=== PATIENT | female | born 1975 | race Caucasian/White ===

== ENCOUNTER 2021-09-16 18:45 | Emergency (ER) | payer SELFPAY ==
[2021-09-16 20:08] LABS: Urine Blood 3+ (Negative); Urine Glucose Negative (Negative); Urine Protein Negative (Negative)
[2021-09-16] MEDS ORDERED: NA CHLORIDE 0.9% 1,000 ML ONE (20:33)
[2021-09-16 20:49] LABS: Absolute Lymphocytes (CBC) 2.8 K/uL (0.7-4.9); Basophils % 1.4 % (0-1.3); Lymphocytes % 33.4 % (15.3-44.8); MPV 10.1 fL (7.6-11.3); RBC Red Blood Cell Count 4.02 M/uL (3.86-4.86)
[2021-09-16 21:01] LABS: BUN Blood Urea Nitrogen 10 mg/dL (7-18); Bicarbonate 21 mmol/L (21-32); Glucose Level 102 mg/dL (74-106); Potassium 3.7 mmol/L (3.5-5.1); Sodium Level 146 mmol/L (136-145); Troponin (Emerg Dept Use Only) < 0.02 ng/mL (0.0-0.045)
--- NOTE | 2021-09-16 21:19 | RAD REPORT ---
EXAM DESCRIPTION: US - Pelvis Complete - 09/16/2021 9:10 pm CLINICAL HISTORY: ABD PAIN Pelvic pain. COMPARISON: No comparisons FINDINGS: The uterus is normal in size, shape and echotexture. The uterus measures 7.6 x 5.4 x 4.7 c m. The endometrial stripe measures 4 mm, normal. The left ovary is normal with normal blood flow and measures 2.9 x 2.6 x 1.6 cm. The right ovary is obscured by bowel gas. No adnexal masses. No significant pelvic ascites. IMPRESSION: Nonvisualization the right ovary, otherwise negative study.
--- NOTE | 2021-09-16 21:52 | EDPHYS ---
Physician Documentation [facility] Name: Meredith Swain Age: 46 yrs Sex: Female : 1975 Arrival Date: 09/16/2021 Time: 18:46 Bed 18 Private MD: [place] Physician Kalyan Rivera HPI: 09/16 20:53 This 46 yrs old Female presents to ER via Ambulatory with complaints of iban Vaginal Bleeding, General Weakness, Doesn't Feel Right. 20:53 The patient presents with vaginal bleeding that is moderate. Onset: The iban symptoms/episode began/occurred 1 day(s) ago. Modifying factors: The symptoms are alleviated by nothing, the symptoms are aggravated by nothing. Associated signs and symptoms: The patient has no apparent associated signs or symptoms. Severity of symptoms: At their worst the symptoms were moderate. The patient is sexually active, reportedly has a single partner. The patient has not experienced similar symptoms in the past. 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 - Social history:: Smoking status: Patient reports the use of cigarette tobacco products. - Family history:: not pertinent. ROS: 20:53 Constitutional: Negative for fever, chills, and weight loss, Eyes: Negative for injury, iban pain, redness, and discharge, ENT: Negative for injury, pain, and discharge, Neck: Negative for injury, pain, and swelling, Cardiovascular: Negative for chest pain, palpitations, and edema, Respiratory: Negative for shortness of breath, cough, wheezing, and pleuritic chest pain, Abdomen/GI: Negative for abdominal pain, nausea, vomiting, diarrhea, and constipation, Back: Negative for injury and pain, : Negative for injury, bleeding, discharge, and swelling, MS/Extremity: Negative for injury and deformity, Skin: Negative for injury, rash, and discoloration, Neuro: Negative for headache, weakness, numbness, tingling, and seizure, Psych: Negative for depression, anxiety, suicide ideation, homicidal ideation, and hallucinations, Allergy/Immunology: Negative for hives, rash, and allergies, Endocrine: Negative for neck swelling, polydipsia, polyuria, polyphagia, and marked weight changes, Hematologic/Lymphatic: Negative for swollen nodes, abnormal bleeding, and unusual bruising. Exam: 20:53 Constitutional: This is a well developed, well nourished patient who is awake, alert, iban and in no acute distress. Head/Face: Normocephalic, atraumatic. Eyes: Pupils equal round and reactive to light, extra-ocular motions intact. Lids and lashes normal. Conjunctiva and sclera are non-icteric and not injected. Cornea within normal limits. Periorbital areas with no swelling, redness, or edema. ENT: Nares patent. No nasal discharge, no septal abnormalities noted. Tympanic membranes are normal and external auditory canals are clear. Oropharynx with no redness, swelling, or masses, exudates, or evidence of obstruction, uvula midline. Mucous membranes moist. Neck: Trachea midline, no thyromegaly or masses palpated, and no cervical lymphadenopathy. Supple, full range of motion without nuchal rigidity, or vertebral point tenderness. No Meningismus. Chest/axilla: Normal chest wall appearance and motion. Nontender with no deformity. No lesions are appreciated. Cardiovascular: Regular rate and rhythm with a normal S1 and S2. No gallops, murmurs, or rubs. Normal PMI, no JVD. No pulse deficits. Respiratory: Lungs have equal breath sounds bilaterally, clear to auscultation and percussion. No rales, rhonchi or wheezes noted. No increased work of breathing, no retractions or nasal flaring. Abdomen/GI: Soft, non-tender, with normal bowel sounds. No distension or tympany. No guarding or rebound. No evidence of tenderness throughout. Back: No spinal tenderness. No costovertebral tenderness. Full range of motion. Skin: Warm, dry with normal turgor. Normal color with no rashes, no lesions, and no evidence of cellulitis. MS/ Extremity: Pulses equal, no cyanosis. Neurovascular intact. Full, normal range of motion. Neuro: Awake and alert, GCS 15, oriented to person, place, time, and situation. Cranial nerves II-XII grossly intact. Motor strength 5/5 in all extremities. Sensory grossly intact. Cerebellar exam normal. Normal gait. Psych: Awake, alert, with orientation to person, place and time. Behavior, mood, and affect are within normal limits. 20:53 ECG was reviewed by the Attending Physician. Vital Signs: 18:53 BP 126 / 79; Pulse 89; Resp 17; Temp 97.7; Pulse Ox 99% ; Weight 59.87 kg; Height 5 ft. jh6 0 in. (152.40 cm); Pain 6/10; 20:00 BP 115 / 61; Pulse 90; Resp 19; Pulse Ox 100% on R/A; sm5 21:00 BP 108 / 59; Pulse 71; Resp 18; Pulse Ox 100% ; sm5 18:53 Body Mass Index 25.78 (59.87 kg, 152.40 cm) jh6 MDM: 20:02 Patient medically screened. [facility] 20:59 Differential diagnosis: dysfunctional uterine bleeding, dysmenorrhea, menometrorrhagia, iban menorrhea, nonspecific abdominal pain, urinary tract infection. Data reviewed: vital signs, nurses notes, lab test result(s), EKG, radiologic studies, ultrasound. Data interpreted: cardiac monitor: rate is 89 beats/min, rhythm is regular, Pulse oximetry: on room air is 99 %. Test interpretation: by ED physician or midlevel provider: ECG. Counseling: I had a detailed discussion with the patient and/or guardian regarding: the historical points, exam findings, and any diagnostic results supporting the discharge/admit diagnosis, lab results, radiology results, the need for outpatient follow up, for definitive care, a family practitioner, an OB/Gyne specialist. 09/16 20:05 Order name: Basic Metabolic Panel; Complete Time: 21:[address] [facility] 09/16 20:05 Order name: CBC with Diff; Complete Time: 21:[address] [facility] 09/16 20:05 Order name: Type And Screen; Complete Time: 21:[address] [facility] 09/16 20:05 Order name: Troponin (emerg Dept Use Only); Complete Time: 21:[address] [facility] 09/16 20:08 Order name: Urine Dipstick-Ancillary; Complete Time: 21:51 EDMI 09/16 20:05 Order name: IV Saline Lock; Complete Time: 20:[address] [facility] 09/16 20:05 Order name: Labs collected and sent; Complete Time: 20:[address] [facility] 09/16 20:05 Order name: NPO; Complete Time: 20:[address] [facility] 09/16 20:05 Order name: EKG; Complete Time: 20:[address] [facility] 09/16 20:48 Order name: Urine --Ancillary (enter results); Complete Time: 21:51 mw2 09/16 21:05 Order name: Pelvis Complete; Complete Time: 21:51 EDMS 09/16 20:05 Order name: Urine Dipstick-Ancillary (obtain specimen); Complete Time: 20:[address] [facility] 09/16 20:05 Order name: Urine Test (obtain specimen) [facility] 09/16 20:05 Order name: EKG - Nurse/Tech; Complete Time: 20:[address] [facility] EC:53 Rate is 68 beats/min. Rhythm is regular. QRS [place] is Normal. MT interval is normal. QRS iban interval is normal. QT interval is normal. No Q waves. T waves are Normal. No ST changes noted. Clinical impression: Normal ECG and No evidence of ischemia. Interpreted by me. Reviewed by me. Administered Medications: 20:38 Drug: NS 0.9% 1000 ml Route: IV; Rate: 1 bolus; Site: left forearm; sm5 21:30 Follow up: IV Intake: 1000ml sm5 Disposition Summary: 09/16/21 21:51 Discharge Ordered Location: Home iban Problem: new iban Symptoms: have improved iban Condition: Stable iban Diagnosis - Abnormal uterine and vaginal bleeding, unspecified iban - Tobacco abuse counseling iban - Tobacco use iban Followup: iban - With: Private Physician - When: 2 - 3 days - Reason: Recheck today's complaints, Continuance of care, Re-evaluation by your physician Followup: iban - With: - When: 2 - 3 days - Reason: Recheck today's complaints, Re-evaluation by your physician Discharge Instructions: - Discharge Summary Sheet iban - Abnormal Uterine Bleeding iban - Steps to Quit Smoking iban - Health Risks of Smoking iban - Steps to Quit Smoking, Vbjy-nt-[id number] iban - Abnormal Uterine Bleeding, Atls-un-Nqat iban - Managing the Challenge of Quitting Smoking iban Forms: - Medication Reconciliation Form iban - Thank You Letter iban - Antibiotic Education iban - Prescription Opioid Use iban Prescriptions: - Ibuprofen 600 mg Oral Tablet - take 1 tablet by ORAL route every 6 hours As needed take with food; 30 tablet; iban Refills: 0, Product Selection Permitted Signatures: Dispatcher [employer] Kalyan Childs MD MD cha Hastedt, Jennifer RN RN jh6 Patricia Vieyra RN RN sm5 Corrections: (The following items were deleted from the chart) 20:35 20:05 ABO/RH TYPING+BB.LAB.BRZ ordered. EDMS EDMS 21:05 20:05 Transvaginal Study (Probe)+US.RAD.BRZ ordered. EDMS EDMS
--- NOTE | 2021-09-16 21:52 | ER ---
Nurse's Notes [facility] Name: Meredith Swain Age: 46 yrs Sex: Female : 1975 Arrival Date: 09/16/2021 Time: 18:46 Bed 18 Private MD: Diagnosis: Abnormal uterine and vaginal bleeding, unspecified;Tobacco abuse counseling;Tobacco use Presentation: 09/16 18:53 Chief complaint: Patient states: irregular vag bleeding. states that her last period [facility] was 18days ago and started having lower abd pain and heavy vag bleeding. Coronavirus screen: Vaccine status:. Ebola Screen: No symptoms or risks identified at this time. Initial Sepsis Screen: Does the patient meet any 2 criteria? No. Patient's initial sepsis screen is negative. Does the patient have a suspected source of infection? No. Patient's initial sepsis screen is negative. Risk Assessment: Do you want to hurt yourself or someone else? Patient reports no desire to harm self or others. Onset of symptoms was September 15, 2021 at 08:00. 18:53 Method Of Arrival: Ambulatory [facility] 18:53 Acuity: ANN 3 [facility] Triage Assessment: 18:58 General: Appears uncomfortable, Behavior is anxious. Pain: Complains of pain in abdomen [facility] Pain currently is 6 out of 10 on a pain scale. Quality of pain is described as crampy, Pain began 2-3 days ago. : Reports cramping, lower quadrant(s) discharge, from vagina that is bloody, vaginal bleeding that is with clots, heavy flow. 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 - Social history:: Smoking status: Patient reports the use of cigarette tobacco products. - Family history:: not pertinent. Screenin:24 Abuse screen: Denies threats or abuse. Denies injuries from another. Nutritional sm5 screening: No deficits noted. Tuberculosis screening: No symptoms or risk factors identified. Fall Risk No fall in past 12 months (0 pts). No secondary diagnosis (0 pts). IV access (20 points). Ambulatory Aid- None/Bed Rest/Nurse Assist (0 pts). Gait- Normal/Bed Rest/Wheelchair (0 pts) Mental Status- Oriented to own ability (0 pts). Total Nicolas Fall Scale indicates No Risk (0-24 pts). Assessment: 21:24 General: Appears in no apparent distress. Behavior is cooperative, anxious. Pain: sm5 Denies pain. Neuro: Level of Consciousness is awake, alert, Oriented to person, place, time, situation. Cardiovascular: No deficits noted. Capillary refill < 3 seconds Patient's skin is warm and dry. Respiratory: Airway is patent Trachea midline Respiratory effort is even, unlabored, Respiratory pattern is regular, symmetrical. GI: No deficits noted. : Urine is blood tinged, Reports vaginal bleeding that is bright red. Vital Signs: 18:53 BP 126 / 79; Pulse 89; Resp 17; Temp 97.7; Pulse Ox 99% ; Weight 59.87 kg; Height 5 ft. jh6 0 in. (152.40 cm); Pain 6/10; 20:00 BP 115 / 61; Pulse 90; Resp 19; Pulse Ox 100% on R/A; sm5 21:00 BP 108 / 59; Pulse 71; Resp 18; Pulse Ox 100% ; sm5 18:53 Body Mass Index 25.78 (59.87 kg, 152.40 cm) [facility] ED Course: 18:46 Patient arrived in ED. am2 18:57 Triage completed. 6 18:59 Arm band placed on left wrist. [facility] 19:27 Patricia Vieyra, [place] is Primary Nurse. sm5 20:02 Kalyan Rivera MD is Attending Physician. iban 20:31 Basic Metabolic Panel Sent. sm5 20:31 CBC with Diff Sent. sm5 20:31 Type And Screen Sent. sm5 20:32 Inserted saline lock: 20 gauge in right forearm, using aseptic technique. Blood sm5 collected. 21:10 Pelvis Complete In Process Unspecified. EDMS 21:26 Patient has correct armband on for positive identification. Bed in low position. Call sm5 light in reach. Side rails up X 1. Pulse ox on. NIBP on. 21:51 Michell Mccain MD is Referral Physician. iban 21:56 No provider procedures requiring assistance completed. IV discontinued, intact, sm5 bleeding controlled, No redness/swelling at site. Pressure dressing applied. Administered Medications: 20:38 Drug: NS 0.9% 1000 ml Route: IV; Rate: 1 bolus; Site: left forearm; [facility] 21:30 Follow up: IV Intake: 1000ml [facility] Intake: 21:30 IV: 1000ml; Total: 1000ml. [facility] Outcome: 21:51 Discharge ordered by MD. ferrera 21:56 Eloped from patient exam room, after seeing physician [facility] 21:56 Condition: stable 21:57 Patient left the ED. [facility] Signatures: Dispatcher [employer] EDMS Kalyan Rivera MD MD cha Moreno, Amanda am2 Nhung Jensen, RN RN 6 Patricia Vieyra RN RN [facility] Corrections: (The following items were deleted from the chart) 20:35 20:31 ABO/RH TYPING+BB.LAB.BRZ drawn and sent. [facility] EDND 21:05 20:55 To radiology for Transvaginal Study (Probe)+US.RAD.BRZ. [facility] EDND
[2021-09-16 23:03] VITALS: TEMP 97.7
[2021-09-16 23:04] VITALS: O2SAT 100
[2021-09-16 23:06] VITALS: BP 108/59
--- NOTE | 2021-09-17 07:49 | EKG ---
Test Date: 2021-09-16 Test Time: 20:43:39 Events Manager: TOOTIE MEASUREMENT RESULTS: Intervals: Rate: 68 NE: 120 QRSD: 84 QT: 412 QTc: 438 [place]: P: 53 NE: 120 QRS: 73 T: 44 INTERPRETIVE STATEMENTS: Normal sinus rhythm Possible Left atrial enlargement Borderline ECG No previous ECG available for comparison Electronically Signed On 09-17-21 07:48:03 [employer] by Abrahan Novoa
== END 2021-09-16 21:57 | disposition home or self-care (01) ==
LOC: ER 18:45
DX: N93.9 Abnormal uterine and vaginal bleeding, unspecified (principal); Z72.0 Tobacco use; Z71.6 Tobacco abuse counseling
CPT/HCPCS: 36415; 76856; 80048; 81003; 81025; 84484; 85025; 86850; 86900; 86901; 93005; 99284; J7030